=== PATIENT | female | born 1950 | race Caucasian/White ===

== ENCOUNTER 2021-01-23 13:26 | Emergency (ER) | payer MEDICARE ==
[~2021-01-23] VITALS: Ht 154.9 cm; Wt 60.3 kg
[2021-01-23 13:32] VITALS: BP 125/86
[2021-01-23] MEDS ORDERED: APIX5TAB PO (13:41)
[2021-01-23] MEDS ORDERED: AMLO10TA4 PO (13:41)
[2021-01-23] MEDS ORDERED: METO50TA18 PO (13:41)
[2021-01-23] MEDS ORDERED: PROP225T3 PO (13:41)
[2021-01-23] MEDS ORDERED: ATOR10 PO (13:41)
[2021-01-23] MEDS ORDERED: LISI20TA24 PO (13:41)
[2021-01-23 13:45] LABS: BASOPHILS % (AUTO) 0.9 % (0.0-5.0); EOSINOPHILS % (AUTO) 0.9 % (0.0-8.0); HEMATOCRIT 39.3 % (36-48); LYMPHOCYTES % (AUTO) 17.7 % (21.0-51.0); MEAN CORPUSCULAR HGB CONC 33.8 g/dL (32.0-36.0); MEAN CORPUSCULAR VOLUME 94.5 fL (79-99); MONOCYTES % (AUTO) 6.2 % (3.0-13.0); NEUTROPHILS % (AUTO) 73.9 % (40.0-77.0); PLATELET COUNT (AUTO) 225 K/uL (130-400); RED BLOOD CELL COUNT(AUTO) 4.16 MIL/uL (4.00-5.50); RED CELL DISTRIBUTION WIDTH 13.4 % (11.0-15.5); WHITE BLOOD COUNT (AUTO) 10.8 K/uL (4.8-10.8)
[2021-01-23 14:00] LABS: CREATININE 0.8 mg/dL (0.5-1.5); POTASSIUM 3.7 mmol/L (3.5-5.1)
[2021-01-23 14:04] LABS: ALBUMIN 3.8 g/dL (3.5-5.0); BILIRUBIN,TOTAL 0.4 mg/dL (0.2-1.0)
[2021-01-23 14:16] LABS: B-TYPE NATRIURETIC PEPTIDE 469 pg/mL (0-100)
[2021-01-23 15:26] LABS: APPEARANCE,URINE Clear (CLEAR); BILIRUBIN,URINE Negative (NEGATIVE); COLOR,URINE Yellow (YELLOW); GLUCOSE, URINE (UA) Negative (NEGATIVE); KETONES,URINE Negative (NEGATIVE); LEUKOCYTE ESTERASE ,URINE Negative (NEGATIVE); NITRATE,URINE Negative (NEGATIVE); OCCULT BLOOD,URINE Negative (NEGATIVE); PH,URINE 7.5 (5.0-8.0); PROTEIN,URINE Negative (NEGATIVE); UROBILINOGEN,URINE 0.2 mg/dL (0.2-1.0)
[2021-01-23] MEDS ORDERED: MECLIZINE HCL 25 MG TABLET PO ONE (15:30)
[2021-01-23] MEDS ORDERED: 0.9%NACL 1000ML 1,000 ML IV ONE (15:30)
[2021-01-23 15:35] LABS: AMPHET/METH SCREEN,URINE NEGATIVE (NEGATIVE); BARBITURATE SCREEN, URINE NEGATIVE (NEGATIVE); BENZODIAZEPINES SCREEN,URINE NEGATIVE (NEGATIVE); CANNABINOID SCREEN,URINE NEGATIVE (NEGATIVE); COCAINE SCREEN,URINE NEGATIVE (NEGATIVE); OPIATE SCREEN,URINE NEGATIVE (NEGATIVE); PHENCYCLIDINE SCREEN,URINE NEGATIVE (NEGATIVE)
[2021-01-23] MEDS ORDERED: MECL-160 PO (18:09)
== END 2021-01-23 18:45 | disposition home or self-care (01) ==
LOC: EDH 13:26
DX: R42 Dizziness and giddiness (principal); R55 Syncope and collapse; E78.00 Pure hypercholesterolemia, unspecified; I10 Essential (primary) hypertension; I48.91 Unspecified atrial fibrillation; Z79.01 Long term (current) use of anticoagulants; Z79.899 Other long term (current) drug therapy
CPT/HCPCS: 36415; 70450; 71045; 80053; 80305; 81003; 83880; 84484; 85025; 93005 ×2; 96360; 96361; 99285; J7030